=== PATIENT | female | born 1955 | race Caucasian/White ===

== ENCOUNTER 2017-04-02 13:37 | Emergency (ER) | payer MEDICAID ==
[2017-04-02 14:01] VITALS: BP 139/75
--- NOTE | 2017-04-02 14:27 | EDM.PDOC ---
Addendum entered and electronically signed by Thierno Barnhart PA 04/04/17 14:54 : assessment- right 4th phalynx fracture plan: discharge home, rest/ice/elevation/chiara tape, follow up with clinic for further evaluation and treatment Original Note: ED HPI GENERAL MEDICAL PROBLEM - General Chief Complaint: Lower Extremity Injury/Pain Stated Complaint: RIGHT FOOT INJURY/PAIN Time Seen by Provider: 04/02/17 14:10 Source of Information: Reports: Patient History Limitations: Reports: No Limitations - History of Present Illness INITIAL COMMENTS - FREE TEXT/NARRATIVE: 61 YO WF presents to ER complaining of right foot pain since yesterday. Pt states she accidentally kicked her right foot into a stone fireplace while walking. Pt denies any other injury. Pt states she was able to walk into ER but states it's painful. 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 MANAGER: Reports: Acetaminophen, Cold Therapy, NSAIDS Right Feet Pain Score (Numeric/FACES): 10 - Related Data Allergies Allergy/AdvReac Type Severity Reaction Status Date / Time No Known Drug Allergies Allergy Cannot Verified 04/02/17 14:01 Remember Home Meds: Home Meds Acetaminophen [Acetaminophen Extra Strength] 1,000 mg PO Q4H PRN 04/02/17 [ History] Hydrocodone/Acetaminophen [Hydrocodon-Acetaminophen 5-325] 1 each PO Q6HR PRN # 10 tablet 04/02/17 [Rx] Multivitamin [Multivitamins] 1 each PO DAILY 04/02/17 [History] amLODIPine [Norvasc] 10 mg PO DAILY 04/02/17 [History] Social & Family History - Tobacco Use Smoking Status *Q: Current Every Day Smoker Years of Tobacco use: 42 Packs/Tins Daily: 1 Second Hand Smoke Exposure: Yes - Caffeine Use Caffeine Use: Reports: Coffee, Energy Drinks, Soda - Recreational Drug Use Recreational Drug Use: No Review of Systems - Review of Systems Review Of Systems: See Below Constitutional: Reports: No Symptoms Eyes: Reports: No Symptoms Ears: Reports: No Symptoms Nose: Reports: No Symptoms Mouth/Throat: Reports: No Symptoms Respiratory: Reports: No Symptoms Cardiovascular: Reports: No Symptoms GI/Abdominal: Reports: No Symptoms Genitourinary: Reports: No Symptoms Musculoskeletal: Reports: Foot Pain (right forefoot pain) Skin: Reports: No Symptoms Neurological: Reports: No Symptoms Psychiatric: Reports: No Symptoms ED EXAM, GENERAL - Physical Exam Exam: See Below Exam Limited By: No Limitations General Appearance: Alert, WD/WN, No Apparent Distress Head: Atraumatic, Normocephalic Neck: Normal Inspection, Supple, Non-Tender, Full Range of Motion Respiratory/Chest: No Respiratory Distress, Lungs Clear, Normal Breath Sounds, No Accessory Muscle Use, Chest Non-Tender Cardiovascular: Normal Peripheral Pulses, Regular Rate, Rhythm, No Edema, No Gallop, No JVD, No Murmur, No Rub GI/Abdominal: Normal Bowel Sounds, Soft, Non-Tender, No Organomegaly, No Distention, No Abnormal Bruit, No Mass Back Exam: Normal Inspection, Full Range of Motion, NT Extremities: Leg Pain (right foot pain) Neurological: Alert, Oriented, CN II-XII Intact, Normal Cognition, Normal Gait, Normal Reflexes, No Motor/Sensory Deficits Psychiatric: Normal Affect, Normal Mood Skin Exam: Warm, Dry, Intact, No Rash, Ecchymosis (right forefoot ) Lymphatic: No Adenopathy Course - Vital Signs Last Recorded V/S: Last Vital Signs Temp 37.1 C 04/02/17 13:57 Pulse 89 04/02/17 13:57 Resp 18 04/02/17 13:57 BP 139/75 04/02/17 13:57 Pulse Ox 96 04/02/17 13:57 - Radiology Interpretation Free Text/Narrative:: right foot xray- right proximal 4th phalynx fracture Departure - Departure Time of Disposition: 14:39 Disposition: Home, Self-Care 01 Condition: Good Clinical Impression: Closed fracture of phalanx of foot - Discharge Information Prescriptions: Hydrocodone/Acetaminophen [Hydrocodon-Acetaminophen 5-325] 1 each PO Q6HR PRN # 10 tablet PRN Reason: Pain Instructions: Toe Fracture Referrals: Kelly Bolden MD [Primary Care Provider] - Forms: ED Department Discharge
[2017-04-02] MEDS: Acetaminophen/HYDROcodone 325-5 MG Tab PO PRN ×2 (15:00→15:01)
== END 2017-04-02 15:05 | disposition home or self-care (01) ==
LOC: KA.ED 13:37
DX: S92.514A Nondisplaced fracture of proximal phalanx of right lesser toe(s), initial encounter for closed fracture (principal); F17.210 Nicotine dependence, cigarettes, uncomplicated; Z79.899 Other long term (current) drug therapy; W22.8XXA Striking against or struck by other objects, initial encounter
CPT/HCPCS: 73630; 99283; A9270

== ENCOUNTER 2019-07-18 10:20 | Emergency (ER) | payer MEDICAID ==
[2019-07-18] MEDS: Sodium Chloride 0.9% 1,000 ML IV ONE (11:02)
[2019-07-18] MEDS: Sodium Chloride 0.9% 10 ML Syringe FLUSH PRN (11:03)
[2019-07-18 11:09] VITALS: BP 145/78; PULSE 107
[2019-07-18 11:14] LABS: ANION GAP 21.6 mmol/L (5-15); CHLORIDE,CL 101 mmol/L (98-115); SODIUM,NA 140 mmol/L (136-145)
--- NOTE | 2019-07-18 11:15 | EDM.PDOC ---
ED HPI GENERAL MEDICAL PROBLEM - General Chief Complaint: General Stated Complaint: LUQ PX Time Seen by Provider: 07/18/19 10:46 Source of Information: Reports: Patient History Limitations: Reports: No Limitations - History of Present Illness INITIAL COMMENTS - FREE TEXT/NARRATIVE: Patient is a 63-year-old female who presents to the emergency department via EMS for complaint of abdominal pain. Patient states at approximately 6 a.m. this morning following coffee with cream she developed epigastric and left upper quadrant discomfort. Discomfort became worse after drinking diet soda. Patient does have a history of GERD. Patient became concerned for chest pain and contacted EMS. Patient denies shortness of breath, fever, trauma, out of country travel, lower extremity edema, nausea, vomiting, diarrhea, bloody stool , or recent change in medications. Onset: Today Duration: Hour(s):, Constant Location: Reports: Abdomen (Left upper quadrant) Quality: Reports: Ache, Burning Severity: Mild Improves with: Reports: None Worsens with: Reports: None Associated Symptoms: Reports: No Other Symptoms. Denies: Chest Pain, Diaphoresis, Fever/Chills, Nausea/Vomiting, Shortness of Breath - Related Data Allergies Allergy/AdvReac Type Severity Reaction Status Date / Time No Known Drug Allergies Allergy Cannot Verified 07/18/19 10:59 Remember Home Meds: Home Meds amLODIPine [Norvasc] 10 mg PO DAILY 04/02/17 [History] Cholecalciferol (Vitamin D3) [Vitamin D3] 400 units PO DAILY 07/18/19 [History] Famotidine [Pepcid] 20 mg PO DAILY #30 tab 07/18/19 [Rx] atorvaSTATin [Lipitor] 20 mg PO DAILY 07/18/19 [History] Past Medical History HEENT History: Reports: Impaired Vision Cardiovascular History: Reports: High Cholesterol, Hypertension Gastrointestinal History: Reports: Inflammatory Bowel Disease Genitourinary History: Reports: None 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: Musculoskeletal History: Reports: None Neurological History: Reports: None Psychiatric History: Reports: None Dermatologic History: Reports: None - Infectious Disease History Infectious Disease History: Reports: Chicken Pox, Pertussis (Whooping Cough) - Past Surgical History HEENT Surgical History: Reports: Oral Surgery Cardiovascular Surgical History: Reports: None GI Surgical History: Reports: Colonoscopy Female Surgical History: Reports: None Neurological Surgical History: Reports: Lumbar Spine Musculoskeletal Surgical History: Reports: None Dermatological Surgical History: Reports: None Social & Family History - Caffeine Use Caffeine Use: Reports: Coffee, Energy Drinks, Soda ED ROS GENERAL - Review of Systems Review Of Systems: Comprehensive ROS is negative, except as noted in HPI. Constitutional: Reports: No Symptoms HEENT: Reports: No Symptoms Respiratory: Reports: No Symptoms Cardiovascular: Reports: No Symptoms Endocrine: Reports: No Symptoms GI/Abdominal: Reports: Abdominal Pain. Denies: Bloody Stool, Nausea, Vomiting : Reports: No Symptoms Musculoskeletal: Reports: Neck Pain (Of chronic nature) Skin: Reports: No Symptoms Neurological: Reports: No Symptoms Psychiatric: Reports: No Symptoms Hematologic/Lymphatic: Reports: No Symptoms Immunologic: Reports: No Symptoms ED EXAM, GENERAL - Physical Exam Exam: See Below Exam Limited By: No Limitations General Appearance: Alert, WD/WN, No Apparent Distress Nose: Normal Inspection, Normal Mucosa, No Blood Throat/Mouth: Normal Inspection, Normal Oropharynx, No Airway Compromise Head: Atraumatic, Normocephalic Neck: Normal Inspection, Supple, Tender Lateral (Right paravertebral of chronic nature) Respiratory/Chest: No Respiratory Distress, Lungs Clear, Normal Breath Sounds, No Accessory Muscle Use, Chest Non-Tender Cardiovascular: Regular Rate, Rhythm, Systolic Murmur GI/Abdominal: Normal Bowel Sounds, Soft, No Organomegaly, No Distention, No Abnormal Bruit, No Mass, Pelvis Stable, Tender (Epigastric and left upper quadrant) Back Exam: Normal Inspection. No: CVA Tenderness (L), CVA Tenderness (R) Extremities: Normal Inspection, No Pedal Edema Neurological: Alert, Oriented, Normal Cognition Psychiatric: Normal Affect, Normal Mood Skin Exam: Warm, Dry, Intact, Normal Color, No Rash Lymphatic: No Adenopathy Course - Orders/Labs/Meds Orders: Active Orders 24 hr Category Date Time Status EKG Documentation Completion [RC] ASDIRECTED Care 07/18/19 10:47 Ordered Peripheral IV Care [RC] . DIRECTED Care 07/18/19 10:47 Ordered Chest 2V [CR] Stat Exams 07/18/19 10:47 Ordered COMPREHENSIVE METABOLIC PN,CMP [CHEM] Stat Lab 07/18/19 10:47 Ordered LIPASE [CHEM] Stat Lab 07/18/19 10:47 Ordered Sodium Chloride 0.9% @ 999 MLS/HR (1000ml) Med 07/18/19 10:47 Ordered Sodium Chloride 0.9% [Normal Saline] 1,000 ml IV .BOLUS Sodium Chloride 0.9% [Saline Flush] Med 07/18/19 10:47 Ordered 10 ml FLUSH Q8HR PRN Peripheral IV Insertion Adult [OM.PC] Routine Oth 07/18/19 10:47 Ordered EKG 12 Lead [EK] Routine Ther 07/18/19 10:47 Ordered Medication Orders Sodium Chloride (Normal Saline) 1,000 mls @ 999 mls/hr IV .BOLUS ONE Stop: 07/18/19 11:47 Last Admin: 07/18/19 11:02 Dose: 999 mls/hr Sodium Chloride (Saline Flush) 10 ml FLUSH Q8HR PRN PRN Reason: keep vein open Last Admin: 07/18/19 11:03 Dose: 10 ml Labs: Laboratory Tests 07/18/19 Range/Units 10:10 WBC 6.80 (5.00-10.00) 10^3/uL RBC 4.84 (3.80-5.50) 10^6/uL Hgb 15.8 (12.0-16.0) g/dL Hct 44.4 (37.0-47.0) % MCV 91.7 (82.0-92.0) fL MCH 32.6 H (27.0-31.0) pg MCHC 35.6 (32.0-36.0) g/dL RDW 12.4 (11.5-14.5) % Plt Count 232 (150-400) 10^3/uL MPV 11.5 H (7.4-10.4) fL Immature Gran % (Auto) 0.1 (0.0-5.0) % Neut % (Auto) 68.2 (50.0-70.0) % Lymph % (Auto) 24.0 (20.0-40.0) % [place] % (Auto) 5.9 (2.0-8.0) % Eos % (Auto) 1.2 (1.0-3.0) % Baso % (Auto) 0.6 (0.0-1.0) % Immature Gran # (Auto) 0.01 (0.00-0.50) 10^3/uL Neut # (Auto) 4.64 (2.50-7.00) 10^3/uL Lymph # (Auto) 1.63 (1.00-4.00) 10^3/uL [place] # (Auto) 0.40 (0.10-0.80) 10^3/uL Eos # (Auto) 0.08 L (0.10-0.30) 10^3/uL Baso # (Auto) 0.04 (0.00-0.10) 10^3/uL Meds: Medications Generic Name Dose Route Start Last Admin Trade Name Freq PRN Reason Stop Dose Admin Sodium Chloride 1,000 mls @ 999 mls/hr 07/18/19 10:47 07/18/19 11:02 Normal Saline IV 07/18/19 11:47 999 mls/hr .BOLUS ONE Administration Sodium Chloride 10 ml 07/18/19 10:47 07/18/19 11:03 Saline Flush FLUSH 10 ml Q8HR PRN Administration keep vein open - Re-Assessments/Exams Free Text/Narrative Re-Assessment/Exam: 07/18/19 12:05 Patient afebrile, vital signs stable, abdominal pain resolved. Instructions given for GERD symptoms and food intake. Patient will follow-up with PCP Departure - Departure Time of Disposition: 12:07 Disposition: Home, Self-Care 01 Condition: Good Clinical Impression: GERD (gastroesophageal reflux disease) - Discharge Information Instructions: Indigestion, [id number], Gastroesophageal Reflux Disease, Adult Referrals: Kelly Bolden MD [Physician] - Additional Instructions: Follow-up at [facility] in 2-3 days. Return to emergency department sooner if symptoms continue or worsen. Take medication as directed - My Orders Last 24 Hours: My Active Orders 07/18/19 10:47 EKG Documentation Completion [RC] ASDIRECTED Peripheral IV Care [RC] . DIRECTED Chest 2V [CR] Stat COMPREHENSIVE METABOLIC PN,CMP [CHEM] Stat LIPASE [CHEM] Stat Sodium Chloride 0.9% @ 999 MLS/HR (1000ml) Sodium Chloride 0.9% [Normal Saline] 1,000 ml IV .BOLUS Sodium Chloride 0.9% [Saline Flush] 10 ml FLUSH Q8HR PRN Peripheral IV Insertion Adult [OM.PC] Routine EKG 12 Lead [EK] Routine - Assessment/Plan Last 24 Hours: My Active Orders 07/18/19 10:47 EKG Documentation Completion [RC] ASDIRECTED Peripheral IV Care [RC] . DIRECTED Chest 2V [CR] Stat COMPREHENSIVE METABOLIC PN,CMP [CHEM] Stat LIPASE [CHEM] Stat Sodium Chloride 0.9% @ 999 MLS/HR (1000ml) Sodium Chloride 0.9% [Normal Saline] 1,000 ml IV .BOLUS Sodium Chloride 0.9% [Saline Flush] 10 ml FLUSH Q8HR PRN Peripheral IV Insertion Adult [OM.PC] Routine EKG 12 Lead [EK] Routine Assessment:: GERD Plan: Follow-up with PCP
--- NOTE | 2019-07-18 11:39 | CR ---
[id number] RAD/RAD Chest PA And Lateral EXAM: FRONTAL AND LATERAL CHEST INDICATION: Chest pain. COMPARISON: None. DISCUSSION: Hyperinflation consistent with chronic obstructive pulmonary disease. No acute infiltrates. Normal heart size. Bilateral nipple rings. IMPRESSION: 1. Chronic obstructive pulmonary disease. No acute findings. Amari Hu MD 07/18/19 1138 Thank you for allowing us to participate in the care of your patient.
== END 2019-07-18 12:20 | disposition home or self-care (01) ==
LOC: KA.ED 10:20
DX: K21.9 Gastro-esophageal reflux disease without esophagitis (principal); I10 Essential (primary) hypertension; E78.00 Pure hypercholesterolemia, unspecified; Z79.899 Other long term (current) drug therapy
CPT/HCPCS: 71046; 80053; 81001; 83690; 85025; 93005; 96360; 99284-25; J7030

== ENCOUNTER 2019-07-31 14:30 | Emergency (ER) | payer MEDICAID ==
[2019-07-31 14:51] VITALS: BP 149/89
--- NOTE | 2019-07-31 15:21 | EDM.PDOC ---
ED HPI GENERAL MEDICAL PROBLEM - General Chief Complaint: General Stated Complaint: WALKING PNEUMONIA Time Seen by Provider: 07/31/19 15:06 Source of Information: Reports: Patient History Limitations: Reports: No Limitations - History of Present Illness INITIAL COMMENTS - FREE TEXT/NARRATIVE: Patient is a 63-year-old female who presents to the emergency department this afternoon with a complaint of productive cough for 10 days. Patient also states that she has irritable bowel syndrome, intermittent diarrhea and constipation, blood in stool, and abdominal cramping. This is of chronic nature. Patient denies chest pain, shortness of breath, lower extremity edema, out of country travel, or cardiac history. Onset: Gradual Onset Date: 07/19/19 Duration: Week(s): Location: Reports: Abdomen Severity: Mild Improves with: Reports: None Worsens with: Reports: None Associated Symptoms: Reports: Cough, cough w sputum, Fever/Chills - Related Data Allergies Allergy/AdvReac Type Severity Reaction Status Date / Time No Known Drug Allergies Allergy Cannot Verified 07/31/19 16:49 Remember Home Meds: Home Meds amLODIPine [Norvasc] 10 mg PO DAILY 04/02/17 [History] Cholecalciferol (Vitamin D3) [Vitamin D3] 400 units PO DAILY 07/18/19 [History] Famotidine [Pepcid] 20 mg PO DAILY #30 tab 07/18/19 [Rx] atorvaSTATin [Lipitor] 20 mg PO DAILY 07/18/19 [History] Albuterol [Proventil HFA] 2 puff INH Q4H #1 inhaler 07/31/19 [Rx] Azithromycin [Zithromax] 500 mg PO DAILY #3 tab 07/31/19 [Rx] predniSONE 20 mg PO WITHBREAKFAST #5 tab 07/31/19 [Rx] Past Medical History HEENT History: Reports: Impaired Vision Cardiovascular History: Reports: High Cholesterol, Hypertension Respiratory History: Reports: COPD Gastrointestinal History: Reports: Inflammatory Bowel Disease Genitourinary History: Reports: None 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 History: Reports: None Neurological History: Reports: None Psychiatric History: Reports: None Dermatologic History: Reports: None - Infectious Disease History Infectious Disease History: Reports: Chicken Pox, Pertussis (Whooping Cough) - Past Surgical History Head Surgeries/Procedures: Reports: None HEENT Surgical History: Reports: Oral Surgery Cardiovascular Surgical History: Reports: None GI Surgical History: Reports: Colonoscopy Female Surgical History: Reports: None Neurological Surgical History: Reports: Lumbar Spine Musculoskeletal Surgical History: Reports: None Dermatological Surgical History: Reports: None Social & Family History - Tobacco Use Smoking Status *Q: Former Smoker Used Tobacco, but Quit: Yes Month/Year Tobacco Last Used: quit on giving - Caffeine Use Caffeine Use: Reports: Tea - Recreational Drug Use Recreational Drug Use: No ED ROS GENERAL - Review of Systems Review Of Systems: Comprehensive ROS is negative, except as noted in HPI. Constitutional: Reports: Fever, Chills, Decreased Appetite HEENT: Reports: No Symptoms Respiratory: Reports: Cough, Sputum Cardiovascular: Reports: No Symptoms Endocrine: Reports: No Symptoms GI/Abdominal: Reports: Abdominal Pain, Bloody Stool, Constipation, Diarrhea. Denies: Mucous in Stool : Reports: No Symptoms Musculoskeletal: Reports: No Symptoms Skin: Reports: No Symptoms Neurological: Reports: No Symptoms Psychiatric: Reports: No Symptoms Hematologic/Lymphatic: Reports: No Symptoms Immunologic: Reports: No Symptoms ED EXAM, GENERAL - Physical Exam Exam: See Below Exam Limited By: No Limitations General Appearance: Alert, WD/WN, No Apparent Distress Nose: Normal Inspection, Normal Mucosa, No Blood Throat/Mouth: Normal Inspection, Normal Oropharynx, No Airway Compromise Head: Atraumatic, Normocephalic Neck: Normal Inspection, Supple, Non-Tender, Full Range of Motion. No: Lymphadenopathy (L), Lymphadenopathy (R) Respiratory/Chest: No Respiratory Distress, Rhonchi (Apical clears with cough) Cardiovascular: Normal Peripheral Pulses, Regular Rate, Rhythm, Systolic Murmur (Chronic nature) GI/Abdominal: Normal Bowel Sounds, Soft, No Distention, No Mass, Tender (Mild periumbilical). No: Distended, Guarding, Rigid, Rebound Back Exam: Normal Inspection. No: CVA Tenderness (L), CVA Tenderness (R) Extremities: Normal Inspection, No Pedal Edema Neurological: Alert, Oriented, Normal Cognition Psychiatric: Normal Affect, Normal Mood Skin Exam: Warm, Dry, Intact, Normal Color, No Rash Lymphatic: No Adenopathy Course - Vital Signs Last Recorded V/S: Last Vital Signs Temp 98.4 F 07/31/19 14:46 Pulse 102 H 07/31/19 14:46 Resp 18 07/31/19 14:46 BP 149/89 H 07/31/19 14:46 Pulse Ox 93 L 07/31/19 14:46 - Orders/Labs/Meds Orders: Active Orders 24 hr Category Date Time Status RT Aerosol Therapy [RC] ASDIRECTED Care 07/31/19 15:45 Ordered Labs: Laboratory Tests 07/31/19 07/31/19 07/31/19 Range/Units 15:20 15:20 15:20 WBC 9.12 (5.00-10.00) 10^3/uL RBC 4.19 (3.80-5.50) 10^6/uL Hgb 13.3 D (12.0-16.0) g/dL Hct 38.9 (37.0-47.0) % MCV 92.8 H (82.0-92.0) fL MCH 31.7 H (27.0-31.0) pg MCHC 34.2 (32.0-36.0) g/dL RDW 12.2 (11.5-14.5) % Plt Count 223 (150-400) 10^3/uL MPV 11.1 H (7.4-10.4) fL Immature Gran % (Auto) 0.2 (0.0-5.0) % Neut % (Auto) 70.9 H (50.0-70.0) % Lymph % (Auto) 20.5 (20.0-40.0) % [place] % (Auto) 6.1 (2.0-8.0) % Eos % (Auto) 1.8 (1.0-3.0) % Baso % (Auto) 0.5 (0.0-1.0) % Immature Gran # (Auto) 0.02 (0.00-0.50) 10^3/uL Neut # (Auto) 6.46 (2.50-7.00) 10^3/uL Lymph # (Auto) 1.87 (1.00-4.00) 10^3/uL [place] # (Auto) 0.56 (0.10-0.80) 10^3/uL Eos # (Auto) 0.16 (0.10-0.30) 10^3/uL Baso # (Auto) 0.05 (0.00-0.10) 10^3/uL PT 9.2 (8.9-11.4) SEC INR 0.9 (0.9-1.1) APTT 28.1 (23.1-31.9) SEC Sodium 141 (136-145) mmol/L Potassium 3.6 (3.3-5.3) mmol/L Chloride 102 (98-115) mmol/L Carbon Dioxide 27.6 (21.0-32.0) mmol/L Anion Gap 15.0 (5-15) mmol/L BUN 9 (6-25) mg/dL Creatinine 0.79 (0.51-1.17) mg/dL Est Cr Clr Drug Dosing 58.90 mL/min Estimated GFR (MDRD) > 60 mL/min Glucose 81 (75 - 99) mg/dL Calcium 9.6 (8.7-10.3) mg/dL Total Bilirubin 0.5 (0.2-1.0) mg/dL AST 31 (15-37) U/L ALT 44 (12-78) U/L Alkaline Phosphatase 84 (46-116) IU/L Total Protein 7.2 (6.4-8.2) g/dL Albumin 3.64 (3.00-4.80) g/dL Meds: Medications Discontinued Medications Generic Name Dose Route Start Last Admin Trade Name Freq PRN Reason Stop Dose Admin Albuterol/Ipratropium 3 ml 07/31/19 15:45 Duoneb 3.0-0.5 Mg/3 Ml NEB 07/31/19 15:46 ONETIME ONE - Radiology Interpretation Free Text/Narrative:: Abdominal series with one view chest shows no acute cardiopulmonary or abdominal findings. - Re-Assessments/Exams Free Text/Narrative Re-Assessment/Exam: 07/31/19 16:42 Patient afebrile, vital signs stable, pain subsided. Will follow-up with PCP Departure - Departure Time of Disposition: 16:47 Disposition: Home, Self-Care 01 Condition: Good Clinical Impression: COPD (chronic obstructive pulmonary disease) with acute bronchitis - Discharge Information Instructions: Chronic Obstructive Pulmonary Disease, [place], Acute Bronchitis, Adult, [id number], How to Use a Metered Dose Inhaler Referrals: Martina Mathias MD [Primary Care Provider] - Forms: ED Department Discharge Additional Instructions: Follow-up with Dr. [place] in 2 days. Return to emergency department sooner if symptoms continue or worsen. Take medication as directed Sepsis Event Note - Evaluation Sepsis Screening Result: No Definite Risk - Focused Exam Vital Signs: Vital Signs Temp Pulse Resp BP Pulse Ox 07/31/19 14:46 98.4 F 102 H 18 149/89 H 93 L Date Exam was Performed: 07/31/19 Time Exam was Performed: 16:47 - My Orders Last 24 Hours: My Active Orders 07/31/19 15:45 RT Aerosol Therapy [RC] ASDIRECTED - Assessment/Plan Last 24 Hours: My Active Orders 07/31/19 15:45 RT Aerosol Therapy [RC] ASDIRECTED Assessment:: Upper respiratory infection Plan: Follow up PCP
[2019-07-31 15:46] LABS: CHLORIDE,CL 102 mmol/L (98-115); SODIUM,NA 141 mmol/L (136-145)
--- NOTE | 2019-07-31 15:58 | CR ---
[id number] RAD/RAD Abdomen 3V EXAM: RAD Abdomen 3V INDICATION: BLOOD IN STOOL. COMPARISON: None. DISCUSSION: Unobstructed bowel gas pattern. No radiographically evident pneumoperitoneum. IMPRESSION: No acute findings in the abdomen. Christian Romero MD 07/31/19 [id number] Thank you for allowing us to participate in the care of your patient.
[2019-07-31] MEDS: Albuterol/Ipratropium 3.0-0.5 MG/3 ML Neb Soln NEB ONE (16:45)
[2019-07-31 17:10] VITALS: PULSE 68
== END 2019-07-31 17:20 | disposition home or self-care (01) ==
LOC: KA.ED 14:30
DX: J44.0 Chronic obstructive pulmonary disease with (acute) lower respiratory infection (principal); J20.9 Acute bronchitis, unspecified; I10 Essential (primary) hypertension; E78.00 Pure hypercholesterolemia, unspecified; Z87.891 Personal history of nicotine dependence; Z79.899 Other long term (current) drug therapy
CPT/HCPCS: 36415; 74022; 80053; 82272; 85025; 85610; 85730; 87804; 94640; 99284-25; J7620-GY

== ENCOUNTER 2019-08-10 18:48 | Emergency (ER) | payer MEDICAID ==
--- NOTE | 2019-08-10 19:00 | EDM.PDOC ---
ED HPI GENERAL MEDICAL PROBLEM - General Chief Complaint: Chest Pain Stated Complaint: chest pain Time Seen by Provider: 08/10/19 18:50 Source of Information: Reports: Patient, EMS History Limitations: Reports: No Limitations - History of Present Illness INITIAL COMMENTS - FREE TEXT/NARRATIVE: 63 YO WF with PMH of COPD, IBS and PTSD presents to ER with complaints of chest pain. Pt reports she felt nauseated all day and developed worsening of her shortness of breath with left sided chest pain and left elbow pain tonight. Pt alerted EMS. Pt denies any history of CAD or previous cardiac workups. Pt reports she does have severe anxiety and she develops associated dyspnea with her anxiety. Pt denies any recent illnesses, no fever/chills, no diaphoresis or dizziness. Onset: Today Location: Reports: Chest Quality: Reports: Pressure Severity: Moderate Improves with: Reports: None Worsens with: Reports: None Associated Symptoms: Reports: Chest Pain, Nausea/Vomiting, Shortness of Breath. Denies: Diaphoresis, Fever/Chills, Rash, Seizure, Syncope, Weakness - Related Data Allergies Allergy/AdvReac Type Severity Reaction Status Date / Time No Known Drug Allergies Allergy Cannot Verified 08/10/19 19:23 Remember Home Meds: Home Meds amLODIPine [Norvasc] 10 mg PO DAILY 04/02/17 [History] Cholecalciferol (Vitamin D3) [Vitamin D3] 400 units PO DAILY 07/18/19 [History] Famotidine [Pepcid] 20 mg PO DAILY #30 tab 07/18/19 [Rx] atorvaSTATin [Lipitor] 20 mg PO DAILY 07/18/19 [History] Albuterol [Proventil HFA] 2 puff INH Q4H #1 inhaler 07/31/19 [Rx] Azithromycin [Zithromax] 500 mg PO DAILY #3 tab 07/31/19 [Rx] predniSONE 20 mg PO WITHBREAKFAST #5 tab 07/31/19 [Rx] Past Medical History HEENT History: Reports: Impaired Vision Cardiovascular History: Reports: High Cholesterol, Hypertension Respiratory History: Reports: COPD Gastrointestinal History: Reports: Inflammatory Bowel Disease Genitourinary History: Reports: None CONFORMAL PAD FORMER History: Reports: Musculoskeletal History: Reports: None Neurological History: Reports: None Psychiatric History: Reports: None Dermatologic History: Reports: None - Infectious Disease History Infectious Disease History: Reports: Chicken Pox, Pertussis (Whooping Cough) - Past Surgical History Head Surgeries/Procedures: Reports: None HEENT Surgical History: Reports: Oral Surgery Cardiovascular Surgical History: Reports: None GI Surgical History: Reports: Colonoscopy Female Surgical History: Reports: None Neurological Surgical History: Reports: Lumbar Spine Musculoskeletal Surgical History: Reports: None Dermatological Surgical History: Reports: None Social & Family History - Caffeine Use Caffeine Use: Reports: Tea ED ROS GENERAL - Review of Systems Review Of Systems: See Below Constitutional: Reports: No Symptoms HEENT: Reports: No Symptoms Respiratory: Reports: Shortness of Breath Cardiovascular: Reports: Chest Pain, Lightheadedness Endocrine: Reports: No Symptoms GI/Abdominal: Reports: Nausea : Reports: No Symptoms Musculoskeletal: Reports: No Symptoms Skin: Reports: No Symptoms Neurological: Reports: No Symptoms Psychiatric: Reports: No Symptoms Hematologic/Lymphatic: Reports: No Symptoms Immunologic: Reports: No Symptoms ED EXAM, GENERAL - Physical Exam Exam: See Below Exam Limited By: No Limitations General Appearance: Alert, WD/WN, No Apparent Distress Head: Atraumatic, Normocephalic Neck: Normal Inspection, Supple, Non-Tender, Full Range of Motion Respiratory/Chest: No Respiratory Distress, Lungs Clear, Normal Breath Sounds, No Accessory Muscle Use, Chest Non-Tender Cardiovascular: Normal Peripheral Pulses, Regular Rate, Rhythm, No Edema, No Gallop, No JVD, No Murmur, No Rub GI/Abdominal: Normal Bowel Sounds, Soft, Non-Tender, No Organomegaly, No Distention, No Abnormal Bruit, No Mass Back Exam: Normal Inspection, Full Range of Motion, NT Extremities: Normal Inspection, Normal Range of Motion, Non-Tender, Normal Capillary Refill, No Pedal Edema Neurological: Alert, Oriented, CN II-XII Intact, Normal Cognition, Normal Gait, Normal Reflexes, No Motor/Sensory Deficits Psychiatric: Normal Affect, Normal Mood Skin Exam: Warm, Dry, Intact, Normal Color, No Rash Lymphatic: No Adenopathy EKG INTERPRETATION EKG Date: 08/10/19 Time: 18:53 Rhythm: NSR Rate (Beats/Min): 89 [place]: Normal P-Wave: Present QRS: Normal ST-T: Normal QT: Normal EKG Interpretation Comments: LVH Course - Vital Signs Last Recorded V/S: Last Vital Signs Temp 36.8 C 08/10/19 19:42 Pulse 87 08/10/19 19:42 Resp 19 08/10/19 19:42 BP 121/57 L 08/10/19 19:42 Pulse Ox 95 08/10/19 19:42 - Orders/Labs/Meds Orders: Active Orders 24 hr Category Date Time Status Cardiac Monitoring [RC] . DIRECTED Care 08/10/19 18:53 Active EKG Documentation Completion [RC] ASDIRECTED Care 08/10/19 18:54 Active Peripheral IV Care [RC] . DIRECTED Care 08/10/19 18:53 Active Nitroglycerin [Nitro-Bid 2%] Med 08/10/19 20:15 Ordered 1 gm TOP Q6H EKG 12 Lead [EK] Routine Ther 08/10/19 18:53 Ordered Medication Orders Nitroglycerin (Nitro-Bid 2%) 1 gm TOP Q6H SANDRA Last Admin: 08/10/19 20:12 Dose: 1 gm Labs: Laboratory Tests 08/10/19 08/10/19 Range/Units 19:05 19:05 WBC 8.62 (5.00-10.00) 10^3/uL RBC 3.99 (3.80-5.50) 10^6/uL Hgb 13.1 (12.0-16.0) g/dL Hct 37.0 (37.0-47.0) % MCV 92.7 H (82.0-92.0) fL MCH 32.8 H (27.0-31.0) pg MCHC 35.4 (32.0-36.0) g/dL RDW 12.2 (11.5-14.5) % Plt Count 293 (150-400) 10^3/uL MPV 10.3 (7.4-10.4) fL Immature Gran % (Auto) 0.1 (0.0-5.0) % Neut % (Auto) 57.0 (50.0-70.0) % Lymph % (Auto) 32.9 (20.0-40.0) % Wood % (Auto) 7.4 (2.0-8.0) % Eos % (Auto) 1.9 (1.0-3.0) % Baso % (Auto) 0.7 (0.0-1.0) % Immature Gran # (Auto) 0.01 (0.00-0.50) 10^3/uL Neut # (Auto) 4.91 (2.50-7.00) 10^3/uL Lymph # (Auto) 2.84 (1.00-4.00) 10^3/uL Wood # (Auto) 0.64 (0.10-0.80) 10^3/uL Eos # (Auto) 0.16 (0.10-0.30) 10^3/uL Baso # (Auto) 0.06 (0.00-0.10) 10^3/uL Sodium 141 (136-145) mmol/L Potassium 3.7 (3.3-5.3) mmol/L Chloride 104 (98-115) mmol/L Carbon Dioxide 24.5 (21.0-32.0) mmol/L Anion Gap 16.2 H (5-15) mmol/L BUN 20 (6-25) mg/dL Creatinine 0.91 (0.51-1.17) mg/dL Est Cr Clr Drug Dosing 51.35 mL/min Estimated GFR (MDRD) > 60 mL/min Glucose 87 (75 - 99) mg/dL Calcium 9.9 (8.7-10.3) mg/dL Total Bilirubin 0.6 (0.2-1.0) mg/dL AST 26 (15-37) U/L ALT 48 (12-78) U/L Alkaline Phosphatase 76 (46-116) IU/L Creatine Kinase 141 (26-276) U/L CK-MB (CK-2) 3.90 (0.00-4.30) ng/mL Troponin I 0.06 (0.00-0.070) ng/mL Total Protein 6.9 (6.4-8.2) g/dL Albumin 3.78 (3.00-4.80) g/dL Meds: Medications Generic Name Dose Route Start Last Admin Trade Name Freq PRN Reason Stop Dose Admin Nitroglycerin 1 gm 08/10/19 20:15 08/10/19 20:12 Nitro-Bid 2% TOP 1 gm Q6H SANDRA Administration Discontinued Medications Generic Name Dose Route Start Last Admin Trade Name Freq PRN Reason Stop Dose Admin Aspirin 324 mg 08/10/19 20:01 08/10/19 20:11 Aspirin PO 08/10/19 20:02 324 mg ONETIME ONE Administration - Radiology Interpretation Free Text/Narrative:: CXR- NAD Departure - Departure Time of Disposition: 20:16 Disposition: Refer to Observation Condition: Fair Clinical Impression: Chest pain Qualifiers: Chest pain type: unspecified Qualified Code(s): R07.9 - Chest pain, unspecified Forms: ED Department Discharge Sepsis Event Note - Focused Exam Vital Signs: Vital Signs Temp Pulse Resp BP Pulse Ox 08/10/19 19:42 36.8 C 87 19 121/57 L 95 Date Exam was Performed: 08/10/19 Time Exam was Performed: 20:15 - My Orders Last 24 Hours: My Active Orders 08/10/19 18:53 Cardiac Monitoring [RC] . DIRECTED Peripheral IV Care [RC] . DIRECTED EKG 12 Lead [EK] Routine 08/10/19 18:54 EKG Documentation Completion [RC] ASDIRECTED 08/10/19 20:15 Nitroglycerin [Nitro-Bid 2%] 1 gm TOP Q6H - Assessment/Plan Last 24 Hours: My Active Orders 08/10/19 18:53 Cardiac Monitoring [RC] . DIRECTED Peripheral IV Care [RC] . DIRECTED EKG 12 Lead [EK] Routine 08/10/19 18:54 EKG Documentation Completion [RC] ASDIRECTED 08/10/19 20:15 Nitroglycerin [Nitro-Bid 2%] 1 gm TOP Q6H Assessment:: 1. chest pain Plan: 1. admit for 23 hour obs- Dr Stevens 2. ASA/nitro 3. supportive care 4. Urine drug screen 5. telemetry 6. trop I Q6 x 3
--- NOTE | 2019-08-10 19:50 | CR ---
[id number] RAD/RAD Chest PA And Lateral EXAM: RAD Chest PA And Lateral INDICATION: PAIN. PT REFUSES TO TAKE NIPPLE PIERCINGS OUT COMPARISON: July 18, 2019. DISCUSSION: Cardiomediastinal silhouette is normal in size and contour. No infiltrate, effusion, pneumothorax, or edema. IMPRESSION: Negative examination of the chest. Christian Romero MD 08/10/19 [id number] Thank you for allowing us to participate in the care of your patient.
[2019-08-10 19:52] LABS: ANION GAP 16.2 mmol/L (5-15); CHLORIDE,CL 104 mmol/L (98-115); SODIUM,NA 141 mmol/L (136-145)
[2019-08-10] MEDS: Aspirin 81 MG Tab.Chew PO ONE (20:11)
[2019-08-10] MEDS: Nitroglycerin 2% Oint 1 GM UD Packet TOP SCH (20:12)
[2019-08-10] MEDS ORDERED: Sodium Chloride 0.9% 10 ML Syringe FLUSH PRN (20:17)
[2019-08-10 20:18] VITALS: BP 180/70; PULSE 74
[2019-08-11 07:02] LABS: BARBITURATE SCREEN,URINE NEGATIVE (NEGATIVE); BENZODIAZEPINES SCREEN,URINE NEGATIVE (NEGATIVE); THC SCREEN,URINE 50 NG/ML POSITIVE (NEGATIVE)
[2019-08-11 07:03] LABS: TCA SCREEN,URINE NEGATIVE (NEGATIVE)
[2019-08-11 07:30] LABS: ANION GAP 16.3 mmol/L (5-15); CHLORIDE,CL 102 mmol/L (98-115); SODIUM,NA 139 mmol/L (136-145)
[2019-08-11] MEDS ORDERED: Aspirin 325 MG Tab.EC PO SCH (09:00)
== END 2019-08-10 20:35 ==
LOC: KA.ED 18:48
DX: R07.9 Chest pain, unspecified (principal); I10 Essential (primary) hypertension; E78.00 Pure hypercholesterolemia, unspecified; J44.9 Chronic obstructive pulmonary disease, unspecified; Z79.899 Other long term (current) drug therapy
CPT/HCPCS: 71046; 80053; 82550; 82553; 84484; 85025; 93005; 99285; A9270; 36415; 80048; 80305-QW

== ENCOUNTER 2019-08-10 20:17 | Observation (INO) | payer MEDICAID ==
[2019-08-10] MEDS ORDERED: Sodium Chloride 0.9% 10 ML Syringe FLUSH PRN (21:00)
[2019-08-10] MEDS ORDERED: Lidocaine 2% 100 MG/5 ML Syringe IVPUSH PRN (23:01)
[2019-08-10] MEDS ORDERED: EPINEPHrine 1:10,000 1 MG/10 ML Syringe IVPUSH PRN (23:01)
[2019-08-10] MEDS ORDERED: Nitroglycerin 0.4 MG Tab.SL SL PRN (23:01)
[2019-08-10] MEDS ORDERED: Atropine 0.1 MG/ML 10 ML Syringe IVPUSH PRN (23:01)
[2019-08-11 06:20] VITALS: BP 100/52; PULSE 75
[2019-08-11] MEDS: FLU Vacc QS2019-20(6MOS+)/PF 60 MCG/0.5 ML SYRINGE IM ONE (10:07)
--- NOTE | 2019-08-11 10:49 | PCM.DCSUM1 ---
Discharge Summary - Hospital Course Free Text/Narrative:: Date of admission: 08/10/19 Date of discharge: 08/11/19 Admission diagnoses: # Chest pain, resolved # HTN # Anxiety # Hx suicidal ideation # Social stress Discharge diagnoses: # Chest pain, resolved # HTN # Anxiety # Hx suicidal ideation # Social stress Consultations: None Procedures: None Hospital course: Ms. Arcos reports that she developed left sided chest pain on 08/10/19 around 6PM prompting calling EMS and transfer to the ED. En route, she was given nitro SL which resulted in improvement. She had near resolution of chest pain by the time she arrived at the ED. Work-up, including CBC/CMP/ troponin, EKG, and CXR without abnormality. She noted significant anxiety and given the resolution with use of nitro, ED provider felt she should be monitored for >3hrs so was admitted to observation status. Drug screen obtained and positive for marijuana, which she endorses using in the past month. Review of records reveals a medical clearance visit from the [place] ED on 07/10 prior to transfer to the [facility] for suicidal ideation and paranoid delusions. Record from [facility] are not available, but the patient states she was brought to [place] unwillingly by her daughters "who have their own problems" and was doing "just fine" aside from trying to "deal with all their problems." She reports having been discharged from the [facility] on 08/03/19 after she states the psychiatrist saw her and told her she "has nothing wrong." This morning, she reports feeling well without any recurrence of chest pain. Troponin negative x3. No telemetry concerns. She endorses significant stress lately with the relationship with her children and missing out on going to her son's graduation in [place] after her ride fell through. She states that much of her stress is related to her daughter's drug use and feeling like she will "go to her "grave not ever meeting or knowing many of her grandchildren." She denies any current suicidal ideation, hallucinations, or delusions. Endorses a safe living situation and well supported by AA group and sponsor, who she also lives with. Discussed her mental health status and social stressors at length, including local psychiatry and psychology services available. Discharge and follow-up recommendations: - Discharge to home - No medication changes at discharge - Follow-up with [facility], on 08/13/19 at 1030, as previously scheduled - Recommend referrals to psychiatry and psychology This is a same day admission and discharge. - Discharge Data Discharge Date: 08/11/19 Discharge Disposition: Home, Self-Care 01 Condition: Good - Referral to Home Health Primary Care Physician: PCP Unobtainable - Patient Instructions Diet: Heart Healthy Diet Activity: As Tolerated Driving: May Drive Today Showering/Bathing: May Shower Notify Provider of: Fever, Increased Pain - Discharge Plan *PRESCRIPTION DRUG MONITORING PROGRAM REVIEWED*: Yes *COPY OF PRESCRIPTION DRUG MONITORING REPORT IN PATIENT HOA: Yes Home Medications: Home Meds amLODIPine [Norvasc] 10 mg PO DAILY 04/02/17 [History] Cholecalciferol (Vitamin D3) [Vitamin D3] 400 units PO DAILY 07/18/19 [History] atorvaSTATin [Lipitor] 20 mg PO DAILY 07/18/19 [History] L.acidoph,Paracasei, B.lactis [Probiotic] 1 cap PO DAILY 08/11/19 [History] buPROPion [Wellbutrin SR] 150 mg PO BID 08/11/19 [History] Referrals: Peace Nguyễn, [employer] [Nurse Practitioner] - 08/13/19 10:30 am - Discharge Summary/Plan Comment DC Time >30 min.: No - Patient Data Vitals - Most Recent: Last Vital Signs Temp 36.4 C 08/11/19 06:10 Pulse 75 08/11/19 06:10 Resp 18 08/11/19 06:10 BP 100/52 L 08/11/19 06:10 Pulse Ox 97 08/11/19 06:10 Weight - Most Recent: 46.72 kg I&O - Last 24 hours: Intake & Output 08/10/19 08/11/19 08/11/19 22:59 06:59 14:59 Intake Total 700 Output Total 300 Balance 400 Med Orders - Current: Current Medications Atropine Sulfate (Atropine 0.1 Mg/Ml) 0 mg IVPUSH ASDIRECTED PRN PRN Reason: Heart Epinephrine HCl (Epinephrine 1:10,000) 1 mg IVPUSH ASDIRECTED PRN PRN Reason: Heart Lidocaine HCl (Xylocaine 2%) 0 mg IVPUSH ASDIRECTED PRN PRN Reason: Heart Nitroglycerin (Nitrostat) 0.4 mg SL ASDIRECTED PRN PRN Reason: Heart Sodium Chloride (Saline Flush) 10 ml FLUSH Q8HR PRN PRN Reason: keep vein open Discontinued Medications Influenza Virus Vaccine (Pharmacy To Dose - Influenza Vaccine) 1 each IM ONETIME ONE Stop: 08/10/19 21:55 Influenza Virus Vaccine (Fluzone Quad [id number] Syringe) 60 mcg IM .ONCE ONE Stop: 08/11/19 10:01 Last Admin: 08/11/19 10:07 Dose: 60 mcg
--- NOTE | 2019-08-11 10:49 | PCM.HP.2 ---
H&P History of Present Illness - General Date of Service: 08/11/19 Admit Problem/Dx: Admission Diagnosis/Problem Admission Diagnosis/Problem Chest pain due to psychological stress Source of Information: Patient, Old Records, Provider History Limitations: Reports: No Limitations - History of Present Illness Initial Comments - Free Text/Narative: Ms. Arcos reports that she developed left sided chest pain on 08/10/19 around 6PM prompting calling EMS and transfer to the [facility] ED. En route, she was given nitro SL which resulted in improvement. She had near resolution of chest pain by the time she arrived at the ED. Work-up, including CBC/CMP/ troponin, EKG, and CXR without abnormality. She noted significant anxiety and given the resolution with use of nitro, ED provider felt she should be monitored for >3hrs so was admitted to observation status. This morning, she reports feeling well without any recurrence of chest pain. She endorses significant stress lately with the relationship with her children and missing out on going to her son's graduation in [place] after her ride fell through. She states that much of her stress is related to her daughter's drug use and feeling like she will "go to her "grave not ever meeting or knowing many of her grandchildren." She denies any current suicidal ideation, hallucinations, or delusions. Endorses a safe living situation and well supported by AA group and sponsor, who she also lives with. Review of records reveals a medical clearance visit from the [place] ED on 07/10 prior to transfer to the [facility] for suicidal ideation and paranoid delusions. Record from [facility] are not available, but the patient states she was brought to [place] unwillingly by her daughters "who have their own problems" and was doing "just fine" aside from trying to "deal with all their problems." She reports having been discharged from the [facility] on 08/03/19 after she states the psychiatrist saw her and told her she "has nothing wrong." - Related Data Allergies/Adverse Reactions: Allergies Allergy/AdvReac Type Severity Reaction Status Date / Time nickel Allergy Itching Verified 08/11/19 10:01 No Known Drug Allergies Allergy Cannot Verified 08/10/19 22:34 Remember Home Medications: Home Meds amLODIPine [Norvasc] 10 mg PO DAILY 04/02/17 [History] Cholecalciferol (Vitamin D3) [Vitamin D3] 400 units PO DAILY 07/18/19 [History] atorvaSTATin [Lipitor] 20 mg PO DAILY 07/18/19 [History] L.acidoph,Paracasei, B.lactis [Probiotic] 1 cap PO DAILY 08/11/19 [History] buPROPion [Wellbutrin SR] 150 mg PO BID 08/11/19 [History] Past Medical History HEENT History: Reports: Impaired Vision Cardiovascular History: Reports: High Cholesterol, Hypertension Respiratory History: Reports: COPD, Other (See Below) Other Respiratory History: uses inhaler Gastrointestinal History: Reports: Inflammatory Bowel Disease Genitourinary History: Reports: None PUBLICIST History: Reports: Musculoskeletal History: Reports: None Neurological History: Reports: None Psychiatric History: Reports: Anxiety Dermatologic History: Reports: None - Infectious Disease History Infectious Disease History: Reports: Chicken Pox, Mumps, Pertussis (Whooping Cough) - Past Surgical History Head Surgeries/Procedures: Reports: None HEENT Surgical History: Reports: Oral Surgery Cardiovascular Surgical History: Reports: None GI Surgical History: Reports: Colonoscopy Female Surgical History: Reports: Tubal Ligation Neurological Surgical History: Reports: Lumbar Spine Musculoskeletal Surgical History: Reports: Other (See Below) Other Musculoskeletal Surgeries/Procedures:: back surgery - disc x1 Dermatological Surgical History: Reports: None Social & Family History - Family History Cardiac: Reports: Hypertension GI: Reports: Chronic Diarrhea Psychiatric: Reports: Suicide Attempt - Tobacco Use Smoking Status *Q: Light Tobacco Smoker Years of Tobacco use: 30 Packs/Tins Daily: 0.5 - Caffeine Use Caffeine Use: Reports: Coffee - Recreational Drug Use Recreational Drug Use: No H&P Review of Systems - Review of Systems: Review Of Systems: See Below General: Reports: Malaise, Fatigue. Denies: Fever, Chills HEENT: Denies: Dysphasia, Ear Pain, Eye Pain, Headaches Pulmonary: Denies: Shortness of Breath, Wheezing, Cough Cardiovascular: Denies: Chest Pain, Palpitations, Dyspnea on Exertion Gastrointestinal: Denies: Abdominal Pain, Constipation, Diarrhea Genitourinary: Denies: Dysuria, Frequency, Burning Musculoskeletal: Reports: Muscle Pain. Denies: Neck Pain, Back Pain Skin: Denies: Pallor, Bruising, Rash Psychiatric: Reports: Depression, Anxiety, Agitation. Denies: Suicidal Ideation Neurological: Reports: Numbness, Tingling. Denies: Dizziness, Headache Exam - Exam Exam: See Below - Vital Signs Vital Signs: Last Vital Signs Temp 36.4 C 08/11/19 06:10 Pulse 75 08/11/19 06:10 Resp 18 08/11/19 06:10 BP 100/52 L 08/11/19 06:10 Pulse Ox 97 08/11/19 06:10 Weight: 46.72 kg - Exam Physical Exam Comments:: GENERAL: Well-appearing adult white female sitting in bedside chair in no acute distress. HEENT: Normocephalic, atraumatic. Conjunctiva clear. Nares patent without discharge. Mucous membranes moist, posterior pharynx unremarkable. NECK: Supple, no masses. CV: Regular rate and rhythm, no murmurs, rubs, or gallops. 2+ radial pulses. PULMONARY: Normal effort, clear to auscultation bilaterally, no wheezes, rales, or rhonchi. ABDOMEN: Positive bowel sounds, soft, nontender, nondistended. EXTREMITIES: No edema, cyanosis, or clubbing. MUSCULOSKELETAL: Moves all extremities well. NEUROLOGICAL: No obvious deficits. DERMATOLOGIC: No rashes or suspicious lesions in exposed areas. PSYCHIATRIC: Alert, interactive, anxious affect, no obvious hallucinations or delusions, intact judgment, impaired insight related to past psychiatric conditions. Sepsis Event Note - Evaluation Sepsis Screening Result: No Definite Risk - Focused Exam Vital Signs: Vital Signs Temp Temp Pulse Resp BP Pulse Ox 08/11/19 06:10 36.4 C 75 18 100/52 L 97 08/11/19 02:15 35.3 C 64 18 98/62 95 08/10/19 23:00 36.4 C 87 16 114/66 96 Date Exam was Performed: 08/12/19 Time Exam was Performed: 14:21 Problem List Initiated/Reviewed/Updated: Yes Orders Last 24hrs: Active Orders 24 hr Category Date Time Status Admission Status [Patient Status] [ADT] Routine ADT 08/10/19 20:17 Active Cardiac Monitoring [RC] 0300,0700,1100,1500,1900,2300 Care 08/10/19 20:35 Active Influenza Vaccine Charge [RC] .DISCHARGE Care 08/10/19 21:54 Active Peripheral IV Care [RC] BID Care 08/10/19 22:51 Active Ready for Discharge [RC] PER UNIT ROUTINE Care 08/11/19 10:36 Active Up ad Roxana [RC] DAILY Care 08/10/19 22:51 Active Vital Signs [RC] Q4H Care 08/10/19 22:49 Active Heart Healthy Diet [DIET] Diet 08/11/19 Breakfast Active Atropine [Atropine 0.1 MG/ML] Med 08/10/19 23:01 Active 0 mg IVPUSH ASDIRECTED PRN EPINEPHrine [EPINEPHrine 1:10,000] Med 08/10/19 23:01 Active 1 mg IVPUSH ASDIRECTED PRN Lidocaine 2% [Xylocaine 2%] Med 08/10/19 23:01 Active 0 mg IVPUSH ASDIRECTED PRN Nitroglycerin [Nitrostat] Med 08/10/19 23:01 Active 0.4 mg SL ASDIRECTED PRN Sodium Chloride 0.9% [Saline Flush] Med 08/10/19 21:00 Active 10 ml FLUSH Q8HR PRN Saline Lock Insert [OM.PC] Routine Oth 08/10/19 21:00 Ordered Code Status [Resuscitation Status] Routine Resus Stat 08/10/19 23:41 Ordered Medication Orders Atropine Sulfate (Atropine 0.1 Mg/Ml) 0 mg IVPUSH ASDIRECTED PRN PRN Reason: Heart Epinephrine HCl (Epinephrine 1:10,000) 1 mg IVPUSH ASDIRECTED PRN PRN Reason: Heart Lidocaine HCl (Xylocaine 2%) 0 mg IVPUSH ASDIRECTED PRN PRN Reason: Heart Nitroglycerin (Nitrostat) 0.4 mg SL ASDIRECTED PRN PRN Reason: Heart Sodium Chloride (Saline Flush) 10 ml FLUSH Q8HR PRN PRN Reason: keep vein open Assessment/Plan Comment:: HPI summary/ED course: Ms. Arcos reports that she developed left sided chest pain on 08/10/19 around 6PM prompting calling EMS and transfer to the [facility] ED. En route, she was given nitro SL which resulted in improvement. She had near resolution of chest pain by the time she arrived at the ED. Work-up, including CBC/CMP/troponin, EKG, and CXR without abnormality. She noted significant anxiety and given the resolution with use of nitro, ED provider felt she should be monitored for >3hrs so was admitted to observation status. Drug screen obtained and positive for marijuana, which she endorses using in the past month. Review of records reveals a medical clearance visit from the [place] ED on 07/10 prior to transfer to the [facility] for suicidal ideation and paranoid delusions. Record from [facility] are not available, but the patient states she was brought to [place] unwillingly by her daughters "who have their own problems" and was doing "just fine" aside from trying to "deal with all their problems." She reports having been discharged from the [facility] on 08/03/19 after she states the psychiatrist saw her and told her she "has nothing wrong." Hospitalization problems: # Chest pain, resolved # HTN # Anxiety # Hx suicidal ideation # Social stress Hospital course: This morning, she reports feeling well without any recurrence of chest pain. Troponin negative x3. No telemetry concerns. She endorses significant stress lately with the relationship with her children and missing out on going to her son's graduation in [place] after her ride fell through. She states that much of her stress is related to her daughter's drug use and feeling like she will "go to her "grave not ever meeting or knowing many of her grandchildren." She denies any current suicidal ideation, hallucinations, or delusions. Endorses a safe living situation and well supported by AA group and sponsor, who she also lives with. Discussed her mental health status and social stressors at length, including local psychiatry and psychology services available. She already has a hospital follow-up appointment scheduled with [facility], on at which time referrals can be placed. Discharge to home. No medication changes. Follow-up as scheduled. Return precautions for recurrent cardiopulmonary concerns discussed.
== END 2019-08-11 12:30 | disposition home or self-care (01) ==
LOC: KA.MS 20:17 → UNDOADMOB 20:40 → UNDODISOB 08-11 12:30
PROVIDERS: ADMIT Physician Assistant Medical; ATTEND Family Medicine
DX: R07.9 Chest pain, unspecified (principal); I10 Essential (primary) hypertension; E78.00 Pure hypercholesterolemia, unspecified; F41.9 Anxiety disorder, unspecified; R45.851 Suicidal ideations; J44.9 Chronic obstructive pulmonary disease, unspecified; F17.210 Nicotine dependence, cigarettes, uncomplicated; Z79.899 Other long term (current) drug therapy; Z91.048 Other nonmedicinal substance allergy status
CPT/HCPCS: 90686; G0378

== ENCOUNTER 2023-01-28 23:09 | Emergency (ER) | payer MEDICARE, MEDICAID ==
[2023-01-28] MEDS ORDERED: Sodium Chloride 0.9% 10 ML Syringe FLUSH PRN (23:15)
[2023-01-28 23:33] VITALS: PULSE 88
[2023-01-28] MEDS ORDERED: ALPRAZolam 0.25 MG Tab PO ONE (23:52)
[2023-01-28 23:56] VITALS: BP 170/89
== END 2023-01-29 00:17 | disposition home or self-care (01) ==
LOC: KA.ED 23:09
DX: I10 Essential (primary) hypertension (principal); E78.00 Pure hypercholesterolemia, unspecified; J44.9 Chronic obstructive pulmonary disease, unspecified; Z91.048 Other nonmedicinal substance allergy status; Z79.899 Other long term (current) drug therapy
CPT/HCPCS: 93005; 93010; 99283; 99284; A9270-GY

== ENCOUNTER 2023-11-15 00:10 | Emergency (ER) | payer MEDICARE, MEDICAID ==
[2023-11-15 00:41] VITALS: BP 120/73; PULSE 98
[2023-11-15] MEDS: Diphtheria,Pertussis(Acell),Tetanus Vaccine 0.5 ML Syringe IM ONE (01:22)
== END 2023-11-15 01:38 | disposition home or self-care (01) ==
LOC: KA.ED 00:10
DX: S61.210A Laceration without foreign body of right index finger without damage to nail, initial encounter (principal); E78.00 Pure hypercholesterolemia, unspecified; I10 Essential (primary) hypertension; J44.9 Chronic obstructive pulmonary disease, unspecified; Z23 Encounter for immunization; Z88.8 Allergy status to other drugs, medicaments and biological substances; Z79.899 Other long term (current) drug therapy; Z86.19 Personal history of other infectious and parasitic diseases; W26.0XXA Contact with knife, initial encounter
CPT/HCPCS: 12001; 90471; 90715; 99283; 99283-25

== ENCOUNTER 2023-11-16 17:45 | Emergency (ER) | payer MEDICARE, MEDICAID ==
[2023-11-16] MEDS: Naloxone 0.4 MG/ML SDV ONE (18:02)
[2023-11-16] MEDS: Naloxone 0.4 MG/ML SDV IVPUSH ONE (18:02)
[2023-11-16 18:04] LABS: BASOPHILS ABSOLUTE AUTO 0.01 10^3/uL (0.00-0.10); BASOPHILS PERCENT AUTO 0.2 % (0.0-1.0); EOSINOPHILS ABSOLUTE AUTO 0.32 10^3/uL (0.10-0.30); EOSINOPHILS PERCENT AUTO 7.3 % (1.0-3.0); HEMATOCRIT 37.2 % (37.0-47.0); HEMOGLOBIN 12.3 g/dL (12.0-16.0); IMMATURE GRAN ABSOLUTE AUTO 0.01 10^3/uL (0.00-0.50); IMMATURE GRAN PERCENT AUTO 0.2 % (0.0-5.0); LYMPHOCYTES PERCENT AUTO 43.6 % (20.0-40.0); MEAN CORPUSCULAR HEMOGLOBIN 32.6 pg (27.0-31.0); MEAN CORPUSCULAR HGB CONC 33.1 g/dL (32.0-36.0); MEAN CORPUSCULAR VOLUME 98.7 fL (82.0-92.0); MEAN PLATELET VOLUME 9.8 fL (7.4-10.4); MONOCYTES ABSOLUTE AUTO 0.51 10^3/uL (0.10-0.80); MONOCYTES PERCENT AUTO 11.7 % (2.0-8.0); NEUTROPHILS ABSOLUTE AUTO 1.61 10^3/uL (2.50-7.00); PLATELET COUNT,PLT 187 10^3/uL (150-400); RED BLOOD CELL COUNT 3.77 10^6/uL (3.80-5.50); RED CELL DISTRIBUTION WIDTH 16.8 % (11.5-14.5); WHITE BLOOD CELL COUNT,WBC 4.36 10^3/uL (5.00-10.00)
[2023-11-16 18:17] LABS: APPEARANCE,URINE CLEAR (CLEAR); BILIRUBIN,URINE NEGATIVE (NEGATIVE); COLOR,URINE YELLOW (YELLOW); GLUCOSE,URINE NEGATIVE (NEGATIVE); KETONES,URINE TRACE mg/dL (NEGATIVE); LEUKOCYTE ESTERASE,URINE NEGATIVE (NEGATIVE); NITRITE,URINE NEGATIVE (NEGATIVE); OCCULT BLOOD,URINE NEGATIVE (NEGATIVE); PH,URINE 5.5 (5.0-9.0); PROTEIN,URINE NEGATIVE (NEGATIVE); UROBILINOGEN,URINE 0.2 E.U./dL (0.2-1.0)
[2023-11-16 18:23] LABS: ALANINE AMINOTRANSFERASE,ALT 52 U/L (14-63); ALBUMIN 3.89 g/dL (3.40-5.00); ALKALINE PHOSPHATASE 142 U/L (46-116); AMYLASE 21 U/L (25-125); ANION GAP 28.3 mmol/L (5-15); ASPARTATE AMNIOTRANSFERASE,AST 43 U/L (15-37); BILIRUBIN TOTAL 0.6 mg/dL (0.2-1.0); BLOOD UREA NITROGEN,BUN 19 mg/dL (7-18); CALCIUM 9.2 mg/dL (8.7-10.3); CARBON DIOXIDE,CO2 15.4 mmol/L (21.0-32.0); CHLORIDE,CL 101 mmol/L (98-107); CREATININE 0.93 mg/dL (0.51-1.17); GLUCOSE RANDOM 125 mg/dL (70-140); LACTIC ACID 10.9 mmol/L (0.4-2.0); LIPASE 48 U/L (16-77); POTASSIUM,K 3.7 mmol/L (3.5-5.1); PROTEIN TOTAL,TP 7.8 g/dL (6.4-8.2); SODIUM,NA 141 mmol/L (136-145)
[2023-11-16 18:26] LABS: ESTIMATED GFR 68 mL/min (>=60)
[2023-11-16 18:27] LABS: ETHANOL BLOOD MEDICAL < 3 mg/dL (NOT DETECTED)
[2023-11-16 18:28] LABS: AMPHETAMINES SCREEN, URINE NEGATIVE (NEGATIVE); BARBITURATE SCREEN,URINE NEGATIVE (NEGATIVE); BENZODIAZEPINES SCREEN,URINE NEGATIVE (NEGATIVE); COCAINE METABOLITES,URINE NEGATIVE (NEGATIVE); METHADONE SCREEN, URINE NEGATIVE (NEGATIVE); METHAMPHETAMINES SCREEN, URINE NEGATIVE (NEGATIVE); OXYCODONE SCREEN,URINE NEGATIVE (NEGATIVE); PCP SCREEN,URINE NEGATIVE (NEGATIVE); PROPOXYPHENE SCREEN,URINE NEGATIVE (NEGATIVE); TCA SCREEN,URINE NEGATIVE (NEGATIVE); THC SCREEN,URINE 50 NG/ML POSITIVE (NEGATIVE)
[2023-11-16 18:41] LABS: B-TYPE NATRIURETIC PEPTIDE,BNP 242 pg/mL (0-100)
[2023-11-16] MEDS: Sodium Chloride 0.9% 100 ML IV SCH (19:42)
[2023-11-16] MEDS: Iopamidol 755 Mg/ML 100 ML Bottle IV ONE (19:42)
[2023-11-16] MEDS: Metoprolol Tartrate 5 MG/5 ML SDV IVPUSH ONE ×2 (20:39→22:02)
[2023-11-16] MEDS: Sodium Chloride 0.9% 1,000 ML IV ONE (20:48)
[2023-11-16] MEDS: Sodium Chloride 0.9% 10 ML Syringe FLUSH PRN (20:48)
[2023-11-16] MEDS: Heparin Sodium 5,000 Units/ML Vial IVPUSH ONE (22:35)
[2023-11-16] MEDS: Heparin Sodium/D5W 250 ML IV SCH (22:40)
[2023-11-16] MEDS: Metoprolol Tartrate 50 MG Tab PO ONE (22:53)
[2023-11-16] MEDS: hydrALAZINE 20 MG/ML SDV IVPUSH ONE (23:13)
[2023-11-16 23:34] VITALS: BP 138/78; PULSE 118
== END 2023-11-16 23:53 ==
LOC: KA.ED 17:45
DX: R56.9 Unspecified convulsions (principal); R40.4 Transient alteration of awareness; R79.89 Other specified abnormal findings of blood chemistry; R74.02 Elevation of levels of lactic acid dehydrogenase [LDH]; I10 Essential (primary) hypertension; F12.10 Cannabis abuse, uncomplicated; J44.9 Chronic obstructive pulmonary disease, unspecified; E78.00 Pure hypercholesterolemia, unspecified; Z91.048 Other nonmedicinal substance allergy status; Z79.899 Other long term (current) drug therapy
CPT/HCPCS: 36415; 51702; 70450; 71045; 71275; 80053; 80305-QW; 80307; 81003; 82150; 82947; 83605; 83690; 83880; 84484; 85025; 85379; 87040; 93005; 93010; 96361; 96365; 96375; 96376; 99284; 99285-25; A9270-GY; J0360; J1644; J2310; J3490; J7030; Q9967

== ENCOUNTER 2023-11-23 14:31 | Emergency (ER) | payer MEDICARE, MEDICAID ==
[2023-11-23] MEDS ORDERED: Sodium Chloride 0.9% 10 ML Syringe FLUSH PRN (14:37)
[2023-11-23 14:51] LABS: BASOPHILS ABSOLUTE AUTO 0.02 10^3/uL (0.00-0.10); BASOPHILS PERCENT AUTO 0.6 % (0.0-1.0); EOSINOPHILS ABSOLUTE AUTO 0.26 10^3/uL (0.10-0.30); EOSINOPHILS PERCENT AUTO 7.8 % (1.0-3.0); HEMATOCRIT 33.4 % (37.0-47.0); HEMOGLOBIN 11.3 g/dL (12.0-16.0); LYMPHOCYTES ABSOLUTE AUTO 1.14 10^3/uL (1.00-4.00); MEAN CORPUSCULAR HEMOGLOBIN 32.7 pg (27.0-31.0); MEAN CORPUSCULAR HGB CONC 33.8 g/dL (32.0-36.0); MEAN CORPUSCULAR VOLUME 96.5 fL (82.0-92.0); MEAN PLATELET VOLUME 9.5 fL (7.4-10.4); MONOCYTES ABSOLUTE AUTO 0.47 10^3/uL (0.10-0.80); NEUTROPHILS ABSOLUTE AUTO 1.46 10^3/uL (2.50-7.00); NEUTROPHILS PERCENT AUTO 43.6 % (50.0-70.0); PLATELET COUNT,PLT 210 10^3/uL (150-400); RED BLOOD CELL COUNT 3.46 10^6/uL (3.80-5.50); WHITE BLOOD CELL COUNT,WBC 3.35 10^3/uL (5.00-10.00)
[2023-11-23] MEDS: Sodium Chloride 0.9% 1,000 ML IV ONE (15:01)
[2023-11-23 15:10] LABS: ALANINE AMINOTRANSFERASE,ALT 47 U/L (14-63); ALKALINE PHOSPHATASE 116 U/L (46-116); ANION GAP 19.5 mmol/L (5-15); ASPARTATE AMNIOTRANSFERASE,AST 42 U/L (15-37); BILIRUBIN TOTAL 0.6 mg/dL (0.2-1.0); BLOOD UREA NITROGEN,BUN 20 mg/dL (7-18); CALCIUM 9.4 mg/dL (8.7-10.3); CARBON DIOXIDE,CO2 22.4 mmol/L (21.0-32.0); CHLORIDE,CL 107 mmol/L (98-107); CREATININE 0.98 mg/dL (0.51-1.17); EST CRCL DRUG DOSING (CG) 45.26 mL/min; GLUCOSE RANDOM 84 mg/dL (70-140); POTASSIUM,K 3.9 mmol/L (3.5-5.1); PROTEIN TOTAL,TP 7.2 g/dL (6.4-8.2); SODIUM,NA 145 mmol/L (136-145)
[2023-11-23 15:11] LABS: ESTIMATED GFR 64 mL/min (>=60)
[2023-11-23 15:13] LABS: ETHANOL BLOOD MEDICAL < 3 mg/dL (NOT DETECTED)
[2023-11-23] MEDS: LORazepam 2 MG/ML SDV IVPUSH ONE (15:43)
[2023-11-23] MEDS: Sodium Chloride 0.9% 50 ML IV SCH (16:23)
[2023-11-23] MEDS: Iopamidol 755 Mg/ML 100 ML Bottle IV ONE (16:23)
[2023-11-23 16:43] LABS: APPEARANCE,URINE CLEAR (CLEAR); BILIRUBIN,URINE NEGATIVE (NEGATIVE); COLOR,URINE YELLOW (YELLOW); GLUCOSE,URINE NEGATIVE (NEGATIVE); KETONES,URINE NEGATIVE (NEGATIVE); LEUKOCYTE ESTERASE,URINE NEGATIVE (NEGATIVE); NITRITE,URINE NEGATIVE (NEGATIVE); OCCULT BLOOD,URINE NEGATIVE (NEGATIVE); PH,URINE 5.5 (5.0-9.0); PROTEIN,URINE NEGATIVE (NEGATIVE); UROBILINOGEN,URINE 0.2 E.U./dL (0.2-1.0)
[2023-11-23 16:55] LABS: AMPHETAMINES SCREEN, URINE NEGATIVE (NEGATIVE); BARBITURATE SCREEN,URINE NEGATIVE (NEGATIVE); BENZODIAZEPINES SCREEN,URINE NEGATIVE (NEGATIVE); COCAINE METABOLITES,URINE NEGATIVE (NEGATIVE); METHADONE SCREEN, URINE NEGATIVE (NEGATIVE); METHAMPHETAMINES SCREEN, URINE NEGATIVE (NEGATIVE); OXYCODONE SCREEN,URINE NEGATIVE (NEGATIVE); PCP SCREEN,URINE NEGATIVE (NEGATIVE); PROPOXYPHENE SCREEN,URINE NEGATIVE (NEGATIVE); THC SCREEN,URINE 50 NG/ML POSITIVE (NEGATIVE)
[2023-11-23 16:56] LABS: TCA SCREEN,URINE NEGATIVE (NEGATIVE)
[2023-11-23] MEDS: Sodium Chloride 0.9% 1,000 ML IV SCH (17:44)
[2023-11-23 18:12] VITALS: BP 95/60; PULSE 98
== END 2023-11-23 18:30 ==
LOC: KA.ED 14:31
DX: R41.0 Disorientation, unspecified (principal); D70.2 Other drug-induced agranulocytosis; R79.89 Other specified abnormal findings of blood chemistry; I10 Essential (primary) hypertension; E78.00 Pure hypercholesterolemia, unspecified; J44.9 Chronic obstructive pulmonary disease, unspecified; Z79.899 Other long term (current) drug therapy; Z79.82 Long term (current) use of aspirin; Z91.048 Other nonmedicinal substance allergy status
CPT/HCPCS: 70450; 71045; 74177; 80053; 80305-QW; 80307; 81003; 82140; 83605; 84484; 85025; 93005; 93010; 96361; 96374; 99284; 99285-25; J2060; J3490; J7030; Q9967